=== PATIENT | female | born 1945 | race Caucasian/White ===

== ENCOUNTER 2018-04-02 01:18 | Outpatient (CLI) | payer MEDICARE, MEDICAID, SELFPAY ==
[2018-04-02 11:14] LABS: BUN 18 mg/dL (7-18); CREATININE 0.93 mg/dL (0.55-1.02); Calcium 9.5 mg/dL (8.5-10.1); Glucose 89 mg/dL (70-100)
[2018-04-02 11:15] LABS: ALT 41 U/L (12-78); AST 25 U/L (15-37); Albumin 3.9 g/dL (3.4-5.0); Alkaline Phosphatase 96 U/L (46-116); Anion Gap 9.3 mmol/L (3-11); Bilirubin, Total 0.5 mg/dL (0.2-1.0); CO2 28.7 mmol/L (21.0-32.0); Chloride 105 mmol/L (98-107); Cholesterol 249 mg/dL (50-200); HDL Cholesterol 43 mg/dL (40-60); LDL CHOLESTEROL 164 mg/dL (<100); Potassium 4.4 mmol/L (3.5-5.1); Sodium 143 mmol/L (136-145); Triglyceride 316 mg/dL (30-150)
== END 2018-04-02 01:38 ==
DX: E78.2 Mixed hyperlipidemia (principal); I10 Essential (primary) hypertension
CPT/HCPCS: 36415; 80053; 80061; 83721

== ENCOUNTER 2018-04-04 10:55 | Outpatient (CLI) | payer MEDICARE, MEDICAID, SELFPAY ==
--- NOTE | 2018-04-04 10:37 | DI.RAD_ITS ---
SYMPTOMS/DIAGNOSIS: BACK PAIN LUMBOSACRAL SPINE: Three views were obtained. There is narrowing of the intervertebral disc space at L 5 - S 1 and to a lesser degree at L 4 - 5. No compression fracture seen. Mild hypertrophic spurring of the vertebral endplates and facet joints noted throughout the lumbar region. CONCLUSION: Mild DJD of the lumbar spine, evidence of disc degeneration at L 5 - S 1.
--- NOTE | 2018-04-04 10:37 | DI.RAD_ITS ---
SYMPTOMS/DIAGNOSIS: BACK PAIN AP PELVIS: Single AP view of the pelvis was obtained. There are mild degenerative changes of both hips and SI joints. There are degenerative changes of the lower lumbar spine involving the endplates and facet joints. No other bony abnormality is seen.
== END 2018-04-04 11:15 ==
PROVIDERS: Visit Provider Orthopaedic Surgery
DX: M54.5 Low back pain (principal); M51.37 Other intervertebral disc degeneration, lumbosacral region; M47.816 Spondylosis without myelopathy or radiculopathy, lumbar region
CPT/HCPCS: 99202; 99214; 72100; 72170

== ENCOUNTER 2018-05-30 00:42 | Outpatient (CLI) | payer MEDICARE, MEDICAID, SELFPAY ==
--- NOTE | 2018-05-30 09:25 | DI.MRI_ITS ---
SYMPTOMS/DIAGNOSIS: LUMBAR BACK PAIN WITH RADICULOPATHY AFFECTING LEFT LOWER EXTREMITY, R29.898, M54.16 LUMBOSACRAL SPINE MRI: MR examination of the lumbosacral spine was performed according to the usual protocol. Incidental note is made of numerous high signal rounded renal lesions bilaterally on T2 weighted imaging consistent with multiple renal cysts ; the findings may represent polycystic kidney disease, clinical correlation requested regarding any history of PKD. No significant bony signal abnormality seen in the lumbar region. The conus medullaris appears intact. No bony central canal spinal stenosis or neural foraminal stenosis seen. Intervertebral discs from T10-11 through L3-4 appear intact. At L4-5, there is a left lateral disc herniation, which may impinge the left L5 nerve root at this site. At L5-S1, there is a small right paracentral disc herniation, which may impinge the right S1 nerve root and there is a small left paracentral disc herniation, which may impinge the left S1 nerve root. Correlation with neurologic examination requested. CONCLUSION: 1. Findings suspicious for polycystic kidney disease. 2. Left lateral disc herniation at L4-5. 3. Right paracentral and left paracentral disc herniations at L5-S1.
== END 2018-05-30 01:02 ==
DX: Q61.3 Polycystic kidney, unspecified (principal); M51.26 Other intervertebral disc displacement, lumbar region; M51.27 Other intervertebral disc displacement, lumbosacral region; M54.5 Low back pain
CPT/HCPCS: 72148

== ENCOUNTER 2018-07-16 00:55 | Outpatient (CLI) | payer MEDICARE, MEDICAID, SELFPAY ==
--- NOTE | 2018-07-16 08:15 | DI.US_ITS ---
SYMPTOMS/DIAGNOSIS: UNRESOLVING BACK AND FLANK PAIN, ABDOMINAL PAIN, R10.9, ? POLYCYSTIC KIDNEY DISEASE SUGGESTED ON MRI ABDOMINAL AND RENAL ULTRASOUND: The liver shows increased echogenicity and is enlarged, consistent with fatty infiltration. No liver cysts are seen. The gallbladder is unremarkable, without evidence of stones or wall thickening. Multiple bilateral renal cysts are identified. No hydronephrosis is visible. The parenchymal thickness appears normal. The largest cyst is located in the mid left kidney, measuring 4.7 x 5.2 x 5.1 cm. No calcifications or perinephric collections are seen. The bladder is unremarkable with a prevoid volume of 212 cc. Both ureteral jets were visualized. There is no significant postvoid residual. No bladder mass is identified. The spleen and visualized portions of the pancreas are unremarkable. Atherosclerotic changes are noted of the abdominal aorta. There is no ascites. IMPRESSION: Multiple bilateral renal cysts. No evidence of stones or hydronephrosis. Hepatic steatosis.
== END 2018-07-16 01:15 ==
DX: R10.32 Left lower quadrant pain (principal); N28.1 Cyst of kidney, acquired; M54.5 Low back pain; R16.0 Hepatomegaly, not elsewhere classified; K76.0 Fatty (change of) liver, not elsewhere classified
CPT/HCPCS: 76770; 76700

== ENCOUNTER 2018-12-20 18:23 | Outpatient (REF) | payer MEDICARE, MEDICAID, SELFPAY ==
[2018-12-20 18:57] LABS: Bilirubin Negative (Negative); Blood Negative (Negative); Clarity Clear; Glucose Negative (Negative); Ketones Negative (Negative); Leukocyte Esterase Negative (Negative); Nitrite Negative (Negative); Specific Gravity <= 1.005 (1.005-1.025); Urobilinogen 0.2 EU/dL (Up TO 0.2); pH 5.5 (5-8)
== END 2018-12-20 18:43 ==
LOC: LBN 18:23
DX: R35.0 Frequency of micturition (principal)
CPT/HCPCS: 81003

== ENCOUNTER 2018-12-21 03:11 | Outpatient (CLI) | payer MEDICARE, MEDICAID, SELFPAY ==
[2018-12-21 11:13] LABS: HGB 14.2 g/dL (12.0-15.5); Mean Corpuscular Hemoglobin 29.3 pg (27.0-33.0); Mean Corpuscular Volume 88.8 fL (80-95); Mean Platelet Volume 10.9 fL (8.0-11.0); Platelet Count 214 x1000/uL (130-400); RBC 4.84 m/cumm (4.00-5.20); RBC Distribution Width 13.1 % (11.7-14.6); White Blood Cell Count 5.47 k/cumm (4.4-10.8)
[2018-12-21 11:24] LABS: ALT 35 U/L (12-78); AST 19 U/L (15-37); Albumin 3.5 g/dL (3.4-5.0); Alkaline Phosphatase 88 U/L (46-116); Anion Gap 9.3 mmol/L (3-11); BUN 16 mg/dL (7-18); Bilirubin, Total 0.4 mg/dL (0.2-1.0); CO2 26.7 mmol/L (21.0-32.0); CREATININE 0.91 mg/dL (0.55-1.02); Calcium 8.7 mg/dL (8.5-10.1); Chloride 106 mmol/L (98-107); Glucose 87 mg/dL (70-100); Iron 97 ug/dL (50-175); Sodium 142 mmol/L (136-145); Total Protein 6.4 g/dL (6.4-8.2)
== END 2018-12-21 03:31 ==
DX: I10 Essential (primary) hypertension (principal); K21.9 Gastro-esophageal reflux disease without esophagitis; R63.8 Other symptoms and signs concerning food and fluid intake; R53.83 Other fatigue
CPT/HCPCS: 36415; 80053; 85027; 83540

== ENCOUNTER 2019-03-21 03:27 | Outpatient (CLI) | payer MEDICARE, MEDICAID, SELFPAY ==
[2019-03-21 10:25] LABS: Calculated LDL 141 mg/dL; Cholesterol 240 mg/dL (50-200); HDL Cholesterol 34 mg/dL (40-60); TSH (W/Ref FT4) 2.11 uIU/mL (0.36-3.74); Triglyceride 327 mg/dL (30-150)
== END 2019-03-21 03:47 ==
DX: E78.5 Hyperlipidemia, unspecified (principal); I10 Essential (primary) hypertension; R53.83 Other fatigue
CPT/HCPCS: 36415; 80061; 84443

== ENCOUNTER 2019-04-16 00:40 | Outpatient (CLI) | payer MEDICARE, SELFPAY ==
--- NOTE | 2019-04-16 10:39 | DI.MAMMO_ITS ---
EXAM: MG MAMMO SCREENING CLINICAL HISTORY: screening Z12.39. TECHNIQUE: Bilateral full field digital CC and MLO mammographic images were obtained with 3D tomosyn thesis and utilizing computer aided detection (CAD). COMPARISON: There are multiple priors with the most recent from 01/30/2017. FINDINGS: Masses/Architectural Distortion: None seen. Microcalcifications: No suspicious pleomorphic-type are seen. IMPRESSION: 1. No significant interval change with no specific features of malignancy noted. 2. Unless there is more urgent need, screening mammography is recommended, as per [employer] guidelines. ACR BI-RAD Category- 1 Negative Breast Density - Category B - Scattered areas of fibroglandular density A negative radiographic report should not delay biopsy if a dominant or clinically suspicious mass is present. Up to ten percent of cancers are not identified on mammography. A negative report may reinforce clinical impression. Adenosis and dense breasts may obscure an underlying neoplasm. False positive reports average 6 to 10%.
== END 2019-04-16 01:00 ==
DX: Z12.31 Encounter for screening mammogram for malignant neoplasm of breast (principal)
CPT/HCPCS: 77063; 77067

== ENCOUNTER 2020-03-27 18:30 | Emergency (ER) | payer MEDICARE, MEDICAID, SELFPAY ==
[2020-03-27 18:35] VITALS: BP 188/83; PULSE 79; RESP 20; TEMP 36.2; O2SAT 98
--- NOTE | 2020-03-27 19:23 | ED.GENADUL_ITS ---
Discharge Plan Disposition Patient Disposition: HOME Condition: Stable Discharge Details Clinical Impression: Facial laceration, Finger pain, Head injury Primary Care Provider: Rosenda Cruz ED Provider: Anthony Link Home Meds and New Rx's Prescriptions: Continued nystatin 100,000 unit/gram powder 1 applic TP BID Qty: 60 RF: 1 triamcinolone acetonide 0.5 % cream 1 applic TP BID Qty: 15 RF: 2 Prevnar 13 (PF) 0.5 mL syringe 0.5 ml IM ONCE Qty: 0.5 RF: 0 meclizine 25 mg tablet 25 mg PO TID PRN (Reason: dizziness) Qty: 60 RF: 0 Zyrtec 10 mg capsule 10 mg PO DAILY PRNRF: 0 alum-mag hydroxide-simeth [Maalox Advanced] 355 ML suspension 20 ml PO Q3H PRN Qty: 1 RF: 0 lisinopril 10 mg tablet 10 mg PO DAILY Qty: 90 RF: 3 omeprazole 20 mg capsule,delayed release(DR/EC) 20 mg PO DAILY Qty: 90 RF: 3 Discharge Instructions Instructions: Head Injury (ED), Finger Sprain (ED), Facial Laceration (ED) Additional Instructions: X-ray and CT are unremarkable. Your facial laceration was easily repaired using Dermabond. Pnvm-[id number] medications as to active for symptomatic control. Rest, cool and/or warm compresses as tolerated. Wear isa taping as needed, advance activity as tolerated. Dermabond will come off on its own in roughly 5- 7 days. Please watch for new or worsening symptoms and return to the ER for any concerns. I would recommend reaching out your primary care provider on Monday for prompt outpatient reevaluation. Medical Decision Making 74-year-old female with not anticoagulated had a mechanical fall about 30 minutes ago. She injured her nondominant left fifth finger as well as striking her head. Hand is without obvious deformity. Neuro, vascular, tendon intact. Will obtain x-ray of the left hand, CT imaging of the head. Tetanus up-to-date. Laceration was irrigated and thoroughly cleaned. I was able to easily approximate using Dermabond. Patient tolerated well. CT imaging of head without contrast read by virtual radiology as no acute intracranial abnormality. No evidence for acute traumatic process. X-ray of left hand read by virtual radiology as no evidence for acute fracture or subluxation within the hand. Discussed x-ray and CT findings with patient. Discussed disposition plan. Fourth and fifth left digits will be isa taped together, she does not want the AlumaFoam splint as she believes this will cause her fingers to be too straight. Patient has no additional questions or concerns and is comfortable discharge at this time. Upon discharge she is slightly hypertensive but denies headache, visual changes, chest pain, shortness of breath. She does have hypertension at baseline. She took all of her morning medications. Will not treat asymptomatic hypertension at this time. We discussed her hypertension, she has a cuff at home and will monitor her pressures carefully. Medical Records Medical records reviewed: Yes I reviewed the patient's medical records. HPI General Mode of arrival: ambulatory . Date/Time Provider Initiated Documentation: 03/27/20 18:44 . Limitations to Documentation: no limitations . Information obtained by: patient . HPI Narrative: This is a 74-year-old female with past medical history that includes anxiety, back pain, hypertension, GERD, presenting to the ER today status post mechanical fall. She states that she was outside working in her yard, lost her balance falling forward. She is left-hand dominant and reports injuring her left hand, specifically her fifth finger, moderate pain. She also states that she struck her head and sustained a small laceration to her eyebrow. Denies loss of consciousness, headache, visual morrow ges, neck pain, chest pain, shortness of breath, numbness, tingling, weakness, nausea or vomiting. Tetanus status is up-to-date. She is not anticoagulated. Denies recent illness or any other trauma Related Data Home Medications Medication Instructions Recorded Confirmed alum-mag hydroxide-simeth [Maalox 20 ml PO Q3H PRN #1 bottle 02/14/17 03/27/20 Advanced] nystatin 100,000 unit/gram topical 1 applic TP BID #60 gm 03/20/18 03/27/20 powder triamcinolone acetonide 0.5 % 1 applic TP BID #15 gm 03/20/18 03/27/20 topical cream meclizine 25 mg tablet 25 mg PO TID PRN #60 tab 12/20/18 03/27/20 cetirizine 10 mg capsule 10 mg PO DAILY PRN cap 01/08/19 03/27/20 pneumoc 13-ifeoma conj-dip cr(PF) 0.5 0.5 ml IM ONCE #0.5 ml 03/25/19 07/29/19 mL IM syringe lisinopril 10 mg tablet 10 mg PO DAILY #90 tab-cap 02/03/20 03/27/20 omeprazole 20 mg capsule,delayed 20 mg PO DAILY #90 tab-cap 02/03/20 03/27/20 release Previous Rx's Medication Instructions Recorded nystatin 100,000 unit/gram topical 1 applic TP BID #60 gm 03/20/18 powder triamcinolone acetonide 0.5 % 1 applic TP BID #15 gm 03/20/18 topical cream meclizine 25 mg tablet 25 mg PO TID PRN #60 tab 12/20/18 pneumoc 13-ifeoma conj-dip cr(PF) 0.5 0.5 ml IM ONCE #0.5 ml 03/25/19 mL IM syringe lisinopril 10 mg tablet 10 mg PO DAILY #90 tab-cap 02/03/20 omeprazole 20 mg capsule,delayed 20 mg PO DAILY #90 tab-cap 02/03/20 release Allergies Allergy/AdvReac Type Severity Reaction Status Date / Time aspirin Allergy Mild Verified 03/27/20 18:39 piperazine Allergy Unknown Verified 03/27/20 18:39 General Stated Complaint: HeadInjury DEZ: 3 Review of Systems Constitutional Constitutional: Denies fatigue, Denies fever(s), Denies headache(s) and Denies weakness Eyes Eyes: Denies change in vision ENT Ears, Nose, Mouth, and Throat: Denies headache(s) and Denies neck pain Cardiovascular Cardiovascular: Denies chest pain and Denies dyspnea Respiratory Respiratory: Denies dyspnea Musculoskeletal Musculoskeletal: Denies deformity, Reports arthralgias, Reports joint swelling, Denies neck pain, Denies numbness and Denies tingling Integumentary/Breasts Skin/Breast: Denies rash Neurologic Neurologic: Denies headache(s), Denies numbness, Denies tingling and Denies weakness Endocrine Endocrine: Denies fatigue Hematologic/Lymphatic Hematologic/Lymphatic: Denies easy bleeding and Denies easy bruising FOR[facility]LY [facility] Medical History Anxiety about health and family stress Back complaints Back pain Cerumen impaction Esophageal reflux Essential hypertension Taking lisinipril 10 mg daily. Fatigue GERD (gastroesophageal reflux disease) Hip pain HTN (hypertension) Hyperglycemia Hyperlipidemia Diet controlled. Increased BMI (body mass index) (01/25/17) Lichen sclerosus of female genitalia (01/25/17) Plantar fasciitis of right foot Seasonal allergies (02/22/16) Urinary incontinence Vertigo Family History Mother , age 60 Heart disease Father , age 80 Brain cancer Paternal Grandfather , AGE 80 No problems noted. Maternal Grandmother , AGE 85 No problems noted. Paternal Grandmother Cancer Son Stroke Daughter No problems noted. Maternal Grandfather Cancer Social History Smoking/Tobacco Use Status: Never Alcohol Intake: never Drug use: Never Substance use type: does not use Counseling given: No Counseling provided: none Caregiver/Support person: No Household members: children and other Details: (son/grandson) Housing: apartment Number of Children: 2 Pets and animals: Yes Pets and animals: dog(s) Sexually active: No Current gender identity: decline to answer What is your relationship status?: How often do you talk on the phone with friends or family?: three or more times per week How often do you get together with friends or relatives?: decline to answer How often do you attend rastafarian or mosque services?: 1-3 times per year Do you belong to any clubs or organized social groups?: no Panel score (0-1 are the most socially isolated patients): 1 What type of physical activity do you participate in: walking and additional Details: PT exercises Duration: 15-30 minutes/day Frequency: 1-2 times per week Maty/Congregation: [employer] Special maty needs: No Seatbelt use: always Drive intox or ride w/intox hazmat cdl driver: No Do you feel safe at home: Yes Do you feel safe in your relationship?: Yes Exam Const General: cooperative, healthy appearing, comfortable and no acute distress Orientation: alert, awake and oriented x3 HENMT Head: normal to inspection, normocephalic and atraumatic Ears: external ears normal, TM's normal bilaterally and EAC's normal General nose exam: external nose normal Face images: 1. 1.5 cm superficial well approximated vertical laceration. Mild discomfort and ecchymosis. No active bleeding. No foreign body. Mouth: moist mucous membranes Eyes Alignment and Position: alignment normal Periorbital: periorbital findings abnormal (Laceration as described above) Eyelids: other (Laceration as described above) Conjunctivae: conjunctivae normal Sclera: sclerae normal Cornea: corneas normal Pupils: PERRL EOM: EOM intact bilaterally Direct ophthalmoscopy: normal light reflex Neck Neck: normal visual inspection, full ROM, trachea midline, supple and nontender Resp Effort & Inspection: normal respiratory effort and able to speak in complete sentences Auscultation: clear to auscultation bilaterally Cardio Rate: regular rate Rhythm: regular rhythm GI Inspection: normal to inspection Palpation: soft and nontender Back/Spine/Pelvis Back: No back tenderness Skin General skin exam: no rashes or lesions noted Neuro General: patient alert, patient awake, patient oriented x3, moves all extremities and no focal motor deficits Cranial Nerves: CN's II-XI intact bilaterally Cognition: normal cognition Speech: speech normal Gait: normal gait Motor: muscle tone normal throughout and strength 5/5 throughout Sensory Exam: no sensory deficits noted Extrem Right upper extremity: normal to inspection, full ROM and normal capillary refill Left upper extremity: full ROM, normal capillary refill and hand Details: normal capillary refill, neuromotor exam normal, tendon exam normal, tenderness, swelling and other (Fifth digit and metacarpal, swelling, tenderness) Right lower extremity: normal to inspection, full ROM and normal capillary refill Left lower extremity: normal to inspection, full ROM and normal capillary refill Psych Appearance: grossly normal Mental Status: mental status grossly normal Course Vital Signs Vital signs: Vital Signs Temperature 36.2 C L 03/27/20 18:35 Pulse 79 03/27/20 18:35 Respiratory Rate 03/27/20 18:35 Blood Pressure 188/83 H 03/27/20 18:35 Pulse Oximetry 98 03/27/20 18:35 Temperature 36.2 C L 03/27/20 18:35 Temperature Source Skin 03/27/20 18:35 Pulse 79 03/27/20 18:35 Respiratory Rate 20 03/27/20 18:35 Respiratory Effort Non-Labored 03/27/20 18:51 Blood Pressure 188/83 H 03/27/20 18:35 Blood Pressure Position Sitting 03/27/20 18:35 Pulse Oximetry 98 03/27/20 18:35 Oxygen Delivery Method Room Air 03/27/20 18:35 Oxygen Flow Rate 0 03/27/20 18:35 Pain Level 2 03/27/20 18:51
--- NOTE | 2020-03-27 19:51 | DI.RAD_ITS ---
EXAM: XR HAND LT COMPLETE CLINICAL HISTORY: fall,pain TECHNIQUE: COMPARISON: No exams were available for comparison FINDINGS: Three views were obtained. There are prominent hypertrophic degenerative changes of the IP joints pa rticularly the DIP joints. No evidence of acute fracture. IMPRESSION: RADIATION DOSE DELIVERED: Total DLP
--- NOTE | 2020-03-27 19:51 | DI.CT_ITS ---
EXAM: CT HEAD WO CLINICAL HISTORY: fall, head injury TECHNIQUE: COMPARISON: No exams were available for comparison FINDINGS: Noncontrast cranial CT was performed. There is moderate generalized cerebral atrophy. 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 There is no evidence of acute intracranial hemorrhage, mass effect, or mid line shift. The orbital and temporal bone structures appear intact. Visualized mastoid air cells and paranasal sinuses are clear. IMPRESSION: No evidence of acute intracranial process. RADIATION DOSE DELIVERED: Total DLP
--- NOTE | 2020-03-27 20:10 | NUR.NOTE ---
Nursing Note: Update provided to daughter Meera whom is waiting outside. Ok to update per patient. Meera can be reached at [phone].
--- NOTE | 2020-03-27 20:11 | DI.VRAD_ITS ---
PROCEDURE INFORMATION: Exam: XR Left Hand Exam date and time: 03/27/2020 7:48 PM Age: 74 years old Clinical indication: Injury or trauma; Fall; Initial encounter; Blunt trauma (contusions or hematomas); Hand; Left; Injury date: 03/27/20; Injury details: [place] TECHNIQUE: Imaging protocol: XR Left hand. Views: 3 or more views. COMPARISON: No relevant prior studies available. FINDINGS: Bones/joints: No evidence for acute fracture or subluxation within the left hand. Asymmetrical arthritic changes are seen within the 5th PIP and DIP joints. Additionally, asymmetrical arthritic changes are seen throughout the remaining DIP joints. Soft tissues: Normal. IMPRESSION: 1. No evidence for acute fracture or subluxation within the hand. 2. Asymmetrical arthritic changes within the DIP joints, which can be seen with Erosive Osteoarthritis (EOA). Dictated and Authenticated by: Eileen Dasilva MD. Ordering:TREVOR Cruz MD
--- NOTE | 2020-03-27 20:15 | DI.VRAD_ITS ---
PROCEDURE INFORMATION: Exam: CT Head Without Contrast Exam date and time: 03/27/2020 7:25 PM Age: 74 years old Clinical indication: Injury or trauma; Fall; Initial encounter; Blunt trauma (contusions or hematomas); Consciousness not specified; Injury date: 03/27/20 TECHNIQUE: Imaging protocol: Computed tomography of the head without contrast. Radiation optimization: All CT scans at this facility use at least one of these dose optimization techniques: automated exposure control; mA and/or kV adjustment per patient size (includes targeted exams where dose is matched to clinical indication); or iterative reconstruction. COMPARISON: No relevant prior studies available. FINDINGS: Brain: A linear area of white matter hypoattenuation is seen within the right frontal lobe which suggests sequela prior lacunar infarct. The brain parenchyma is otherwise normal in appearance. No intracranial hemorrhage. No midline shift. 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 The right measures 1.6 x 2.3 cm. The left measures 1.5 x 1.7 cm. This is an incidental finding. No hydrocephalus. Bones/joints: Unremarkable. No acute fracture. Sinuses: Visualized sinuses are unremarkable. No fluid levels. Mastoid air cells: Visualized mastoid air cells are well aerated. Soft tissues: Unremarkable. IMPRESSION: 1. No acute intracranial abnormality. No evidence for acute traumatic process. 2. Subtle area of white matter hypoattenuation within the frontal lobe, suggesting sequela of a prior lacunar infarct. Dictated and Authenticated by: Eileen Dasilva MD. Ordering:TREVOR Cruz MD
[2020-03-27 20:57] VITALS: BP 176/88; PULSE 86; RESP 16; O2SAT 99
== END 2020-03-27 21:00 | disposition home or self-care (01) ==
PROVIDERS: Emergency Provider Physician Assistant
DX: S01.81XA Laceration without foreign body of other part of head, initial encounter (principal); S63.617A Unspecified sprain of left little finger, initial encounter; W01.10XA Fall on same level from slipping, tripping and stumbling with subsequent striking against unspecified object, initial encounter; I10 Essential (primary) hypertension
CPT/HCPCS: 12011; 99284; 70450; 73130; 99281

== ENCOUNTER 2020-04-02 03:49 | Outpatient (CLI) | payer MEDICARE, MEDICAID, SELFPAY ==
[2020-04-02 10:59] LABS: ALT 39 U/L (14-59); AST 21 U/L (15-37); Albumin 3.9 g/dL (3.4-5.0); Alkaline Phosphatase 89 U/L (46-116); Anion Gap 5.5 mmol/L (3-11); BUN 17 mg/dL (7-18); Bilirubin, Total 0.6 mg/dL (0.2-1.0); CO2 31.5 mmol/L (21.0-32.0); CREATININE 0.85 mg/dL (0.55-1.02); Calculated LDL 158 mg/dL (<100); Chloride 106 mmol/L (98-107); Cholesterol 241 mg/dL (<200); Glucose 86 mg/dL (74-106); HDL Cholesterol 36 mg/dL (40-60); Magnesium 2.2 mg/dL (1.8-2.4); Potassium 4.1 mmol/L (3.5-5.1); Sodium 143 mmol/L (136-145); Total Protein 6.9 g/dL (6.4-8.2); Triglyceride 237 mg/dL (<150)
== END 2020-04-02 04:09 ==
DX: I10 Essential (primary) hypertension (principal); E03.9 Hypothyroidism, unspecified; E78.5 Hyperlipidemia, unspecified; K21.9 Gastro-esophageal reflux disease without esophagitis
CPT/HCPCS: 36415; 80053; 80061; 83735

== ENCOUNTER 2021-04-07 00:04 | Outpatient (CLI) | payer MEDICARE, SELFPAY ==
[2021-04-07 12:50] LABS: ALT 56 U/L (14-59); AST 37 U/L (15-37); Albumin 3.9 g/dL (3.4-5.0); Alkaline Phosphatase 94 U/L (46-116); BUN 16 mg/dL (7-18); Bilirubin, Total 0.7 mg/dL (0.2-1.0); Calcium 9.2 mg/dL (8.5-10.1); Calculated LDL 157 mg/dL (<100); Chloride 104 mmol/L (98-107); Cholesterol 250 mg/dL (<200); Estimated GFR 53.91 (mL/min/1.73m2); Glucose 86 mg/dL (74-106); HDL Cholesterol 35 mg/dL (40-60); Potassium 4.1 mmol/L (3.5-5.1); Sodium 142 mmol/L (136-145); Total Protein 7.1 g/dL (6.4-8.2); Triglyceride 294 mg/dL (<150)
== END 2021-04-07 00:05 | disposition home or self-care (01) ==
DX: I10 Essential (primary) hypertension (principal); E78.5 Hyperlipidemia, unspecified
CPT/HCPCS: 36415; 80053; 80061

== ENCOUNTER 2021-04-28 01:27 | Outpatient (CLI) | payer MEDICARE, SELFPAY ==
--- NOTE | 2021-04-28 07:15 | DI.MAMMO_ITS ---
Exam(s) MAMMO SCREENING EXAM: MAMMO SCREENING CLINICAL HISTORY: screening,Z12.39. TECHNIQUE: Bilateral full field digital CC and MLO mammographic images were obtained with 3D tomosyn thesis and utilizing computer aided detection (CAD). COMPARISON: Prior mammograms dating back to 2011, the most recent being April 2019. FINDINGS: There has been no significant change in the appearance and distribution of the fibroglandular tissue. There are no CAD designations. There are no new spiculated masses nor malignant appearing microcalcification groups. Asymmetric density seen anteriorly in the left breast slightly medial of center, best seen on 3D cc i maging is unchanged from prior studies and therefore benign. There is no significant architectural distortion nor skin thickening-retraction. IMPRESSION: No radiographic evidence of malignancy. BI-RADS Category 1 - Negative Breast Density - Category B - Scattered areas of fibroglandular density Breast density Category C or D implies that the patient has dense breast tissue. Dense breast tissue can make it harder to find cancer on a mammogram. Dense breast tissue is also associated with an incr eased risk of breast cancer. This information about the result of the mammogram report was provided to the patient to raise their awareness. Use this report when you speak with the patient about their risks for breast cancer, which includes their family history. At that time, you may recommend additional screening tests (Ultrasoun d or MRI) as these tests may add significant information. A negative radiographic report should not delay biopsy if a dominant or clinically suspicious mass is present. Up to ten percent of cancers are not identified on mammography. A negative report may reinforce clinical impression. Adenosis and dense breasts may obscure an underlying neoplasm. False positive reports average 6 to 10%. Patient will receive a letter notifying them of these results.
== END 2021-04-28 01:47 ==
DX: Z12.31 Encounter for screening mammogram for malignant neoplasm of breast (principal)
CPT/HCPCS: 77063; 77067

== ENCOUNTER 2022-05-17 03:57 | Outpatient (CLI) | payer MEDICARE, SELFPAY ==
[2022-05-17 12:55] LABS: Anion Gap 7.7 mmol/L (3-11); BUN 16 mg/dL (7-18); CO2 28.3 mmol/L (21.0-32.0); Calcium 9.1 mg/dL (8.5-10.1); Calculated LDL 144 mg/dL (<100); Chloride 106 mmol/L (98-107); Cholesterol 229 mg/dL (<200); Estimated GFR 58.02 (mL/min/1.73m2); Glucose 82 mg/dL (74-106); HDL Cholesterol 44 mg/dL (40-60); Sodium 142 mmol/L (136-145); Triglyceride 208 mg/dL (<150)
[2022-05-18 10:34] LABS: Lab Add On Test DONE
[2022-05-18 10:40] LABS: Magnesium 2.1 mg/dL (1.8-2.4)
== END 2022-05-17 03:58 | disposition home or self-care (01) ==
LOC: LOS 03:57
PROVIDERS: Family Medicine; PCP Nurse Practitioner Family
DX: E78.5 Hyperlipidemia, unspecified (principal); Z13.6 Encounter for screening for cardiovascular disorders; I10 Essential (primary) hypertension; G47.62 Sleep related leg cramps
CPT/HCPCS: 36415; 80048; 80061; 83735

== ENCOUNTER 2022-07-12 03:39 | Outpatient (CLI) | payer MEDICARE, SELFPAY ==
[2022-07-12 13:25] LABS: ALT 36 U/L (14-59); AST 39 U/L (15-37); Albumin 3.9 g/dL (3.4-5.0); Alkaline Phosphatase 84 U/L (46-116); Anion Gap 9.2 mmol/L (3-11); BUN 16 mg/dL (7-18); Bilirubin, Total 0.8 mg/dL (0.2-1.0); CO2 26.8 mmol/L (21.0-32.0); Calcium 9.3 mg/dL (8.5-10.1); Calculated LDL 73 mg/dL (<100); Chloride 107 mmol/L (98-107); Cholesterol 151 mg/dL (<200); Estimated GFR 57.66 (mL/min/1.73m2); Glucose 90 mg/dL (74-106); HDL Cholesterol 47 mg/dL (40-60); Sodium 143 mmol/L (136-145); Triglyceride 159 mg/dL (<150)
== END 2022-07-12 03:40 | disposition home or self-care (01) ==
LOC: LOS 03:39
PROVIDERS: PCP Nurse Practitioner Family; Visit Provider Nurse Practitioner Family
DX: E78.5 Hyperlipidemia, unspecified (principal)
CPT/HCPCS: 36415; 80053; 80061

== ENCOUNTER 2022-07-19 21:56 | Outpatient (REF) | payer MEDICARE, SELFPAY ==
[2022-07-19 21:59] LABS: Abs Immature Grans 0.01 10^3/uL (0.0-0.06); Absolute Basophil Count 0.03 10^3/uL (0.0-0.2); Absolute Eosinophil Count 0.04 10^3/uL (0.0-0.7); Absolute Lymphocyte Count 1.52 10^3/uL (1.2-3.4); Absolute Monocyte Count 0.42 10^3/uL (0.1-0.8); Absolute Neutrophil Count 5.04 10^3/uL (1.2-6.7); Basophils % 0.4; Eosinophils % 0.6; HCT 44.5 % (36.0-46.0); Immature Grans % 0.1; Lymphocytes % 21.5; MCH 30.1 pg (27.0-33.0); MCHC 33.7 % (32.0-36.0); MCV 89 fL (80-95); MPV 11.3 fL (8.0-11.0); Monocytes % 5.9; Neutrophils % 71.5; Platelet Count 189 10^3/uL (130-400); RBC 4.99 10^6/uL (3.93-5.22); RDW 12.6 % (11.7-14.6); RDW-SD 41.2 fL; WBC 7.06 10^3/uL (4.4-10.8)
[2022-07-19 22:25] LABS: Iron 87 ug/dL (50-170); Total Iron Binding Capacity 342 ug/dL (250-450)
[2022-07-19 22:52] LABS: Ferritin 113 ng/mL (8-252); Folate 13.4 ng/mL (8.6-20.0); Vitamin B12 287 pg/mL (193-986)
== END 2022-07-19 21:57 | disposition home or self-care (01) ==
LOC: LBN 21:56
PROVIDERS: PCP Nurse Practitioner Family; Visit Provider Nurse Practitioner Family
DX: D64.9 Anemia, unspecified (principal)
CPT/HCPCS: 82607; 82728; 82746; 83540; 83550; 85025

== ENCOUNTER 2024-07-30 03:58 | Outpatient (CLI) | payer MEDICARE, MEDICAID, SELFPAY ==
[2024-07-30 13:13] LABS: ALT 28 U/L (14-59); AST 32 U/L (15-37); Albumin 3.8 g/dL (3.4-5.0); Alkaline Phosphatase 83 U/L (46-116); Anion Gap 9.1 mmol/L (3-11); BUN 21 mg/dL (7-18); Bilirubin, Total 0.54 mg/dL (0.2-1.0); CO2 27.9 mmol/L (21.0-32.0); CREATININE 1.1 mg/dL (0.55-1.02); Calcium 9.6 mg/dL (8.5-10.1); Calculated LDL 156 mg/dL (<100); Chloride 105 mmol/L (98-107); Cholesterol 258 mg/dL (<200); Glucose 89 mg/dL (74-106); HDL Cholesterol 47 mg/dL (40-60); Potassium 3.8 mmol/L (3.5-5.1); Sodium 142 mmol/L (136-145); Total Protein 7.1 g/dL (6.4-8.2); Triglyceride 276 mg/dL (<150)
== END 2024-07-30 03:59 | disposition home or self-care (01) ==
LOC: LOS 03:58
PROVIDERS: PCP Nurse Practitioner Family; Visit Provider Nurse Practitioner Family
DX: I10 Essential (primary) hypertension (principal); E78.5 Hyperlipidemia, unspecified
CPT/HCPCS: 36415; 80053; 80061

== ENCOUNTER 2024-11-14 18:59 | Outpatient (REF) | payer MEDICARE, SELFPAY ==
[2024-11-14 21:41] LABS: Bilirubin Negative (Negative); Blood Negative (Negative); Clarity Clear (Clear); Glucose Negative (Negative); Ketones Negative (Negative); Leukocyte Esterase Moderate (Negative); Nitrite Negative (Negative); Specific Gravity <= 1.005 (1.005-1.025); Urobilinogen 0.2 mg/dL (Up to 0.2)
[2024-11-14 22:01] LABS: Bacteria Negative HPF (Negative); C & S Indicated? No/Sq. Contamination; Crystals Negative HPF (Negative); Epithelial Cells Moderate HPF (Negative); Mucus Negative (Negative); Other Cells Rare Transitional (Negative); RBC 0-2 HPF (0-2)
== END 2024-11-14 19:00 | disposition home or self-care (01) ==
LOC: LBN 18:59
PROVIDERS: PCP Nurse Practitioner Family; Visit Provider Nurse Practitioner Family
DX: R30.0 Dysuria (principal); R39.9 Unspecified symptoms and signs involving the genitourinary system
CPT/HCPCS: 81003; 81015; 87480; 87510; 87660

== ENCOUNTER 2024-12-17 02:17 | Outpatient (CLI) | payer MEDICARE, MEDICAID, SELFPAY ==
[2024-12-17 12:31] LABS: Calculated LDL 75 mg/dL (<100); Cholesterol 147 mg/dL (<200); HDL Cholesterol 44 mg/dL (>or=50); Triglyceride 140 mg/dL (<150)
== END 2024-12-17 02:18 | disposition home or self-care (01) ==
LOC: LOS 02:17
PROVIDERS: PCP Nurse Practitioner Family; Visit Provider Nurse Practitioner Family
DX: E78.5 Hyperlipidemia, unspecified (principal)
CPT/HCPCS: 36415; 80061